=== PATIENT | male | born 1990 | race Two or more races ===

== ENCOUNTER 2024-08-18 05:23 | Emergency (ER) | payer MEDICAID, SELFPAY ==
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
== END 2024-08-18 06:56 | disposition home or self-care (01) ==
PROVIDERS: Emergency Provider Emergency Medicine
DX: Z02.89 Encounter for other administrative examinations (principal)
CPT/HCPCS: 99281